=== PATIENT | female | born 1975 | race Caucasian/White ===

== ENCOUNTER 2022-09-20 10:36 | Emergency (ER) | payer OTHER, SELFPAY ==
[2022-09-20 10:52] VITALS: BP 111/79; PULSE 65; RESP 16; TEMP 36.4; O2SAT 100
--- NOTE | 2022-09-20 10:55 | ED.URI ---
HPI - URI/Sore Throat General Stated Complaint: Sinus infection Time Seen by Provider: 09/20/22 10:56 Source: patient and RN notes reviewed Mode of arrival: ambulatory Limitations: no limitations History of Present Illness HPI Narrative: 46-year-old female presenting for complaint of nasal congestion and drainage, bilateral ear pressure and cough for 2 weeks. Endorses fever at the onset. She denies shortness of breath, wheezing nausea vomiting, fevers or chills. Endorses similar symptoms with her family's house. She has tried Afrin without and MD elicited complaint: cough Related Data Allergies Allergy/AdvReac Type Severity Reaction Status Date / Time acetaminophen Allergy Hives Verified 09/20/22 11:02 Review of Systems Review of Systems: CONSTITUTIONAL: Denies malaise, chills, sweats, fever EYES: Denies visual changes, redness, or discharge ENT: Reports rhinorrhea, congestion, denies sinus pain, otalgia, sore throat CARDIOVASCULAR: Denies chest pain, palpitations, edema RESPIRATORY: Reports cough, post nasal drainage. Denies dyspnea GASTROINTESTINAL: Denies abdominal pain, nausea, vomiting, diarrhea SKIN: Denies rash or itching MUSCULOSKELETAL: Denies myalgia NEUROLOGIC: Denies headache [facility] Past Medical History Medical History (Updated 09/20/22 @ 11:05 by Valerie Lagunas, ASIA) No pertinent past medical history Exam Narrative: GENERAL: Mildly ill-appearing, nontoxic no acute distress. HEAD: Normocephalic EYES: PERRLA, conjunctivae clear ENT: Mucous membranes moist. TMs pearly wills with dull light reflex bilaterally; no tragal tenderness. Oropharynx not erythematous without lesions or exudate, no drooling, no hoarseness, no trismus, uvula midline. NECK: Supple. No lymphadenopathy CHEST: Clear to auscultation, breath sounds equal. No wheezing, rhonchi, rales, or stridor. No respiratory distress, speaks in full sentences. HEART: Regular rate and rhythm. No murmur heard. SKIN: Warm, dry, no rash. NEURO: Alert and oriented x3. PSYCH: Normal mood and affect Course Course Emergency Course: Patient is aware of diagnosis, understands and agrees to treatment plan. Anticipatory guidance given. Patient agrees to follow-up as directed and is aware of reasons to seek care at the emergency department. Portions of this record may have been created with voice recognition software Level of Care: Express Care Visit Vital Signs Vital signs: Vital Signs Temperature 97.6 F 09/20/22 10:52 Pulse Rate 65 09/20/22 10:52 Respiratory Rate 16 09/20/22 10:52 Blood Pressure 111/79 09/20/22 10:52 Pulse Oximetry 100 09/20/22 10:52 Temperature 97.6 F 09/20/22 10:52 Pulse Rate 65 09/20/22 10:52 Respiratory Rate 16 09/20/22 10:52 Blood Pressure 111/79 09/20/22 10:52 Pulse Oximetry 100 09/20/22 10:52 reviewed MDM - URI/Sore Throat MDM Narrative Medical decision making narrative: Discussed physical exam findings. Advised supportive measures and signs/symptoms to go to the ER. Pt is appropriate for outpt treatment and f/u. Differential Diagnosis Differential diagnosis: Likely upper respiratory infection, otitis media, sinusitis, viral infection and pharyngitis Discharge Plan Discharge Clinical Impression: Upper respiratory infection Qualifiers: URI type: unspecified URI Qualified Code(s): J06.9 - Acute upper respiratory infection, unspecified Patient Disposition: Home, Self-Care Condition: Stable Instructions: Antibiotic Form, Rhinosinusitis (ED) Additional Instructions: Recommend Flonase spray and Zyrtec (or Claritin/Gina) over the counter Cough syrup may cause drowsiness; avoid driving or take it at night time. Motrin every 8 hours as needed for pain/fever Symptomatic treatment includes: rest, fluids, and increase humidity of the air at home. Follow up with your primary care provider in 1 week. Go to the ER for worsening symptoms or concerns. Pr
== END 2022-09-20 11:05 | disposition home or self-care (01) ==
PROVIDERS: Emergency Provider Nurse Practitioner Family
DX: J06.9 Acute upper respiratory infection, unspecified (principal)
CPT/HCPCS: 99213; G0463